=== PATIENT | male | born 1940 | race Caucasian/White ===

== ENCOUNTER 2016-07-21 12:39 | Day surgery (SDC) | payer MEDICARE, OTHER ==
[~2016-07-21] VITALS: Ht 170.2 cm; Wt 83.8 kg
[2016-07-21] MEDS ORDERED: GLUCOPHAGE500 MG/TAB PO (13:31)
[2016-07-21] MEDS ORDERED: HCTZ12.5TAB PO (13:31)
[2016-07-21] MEDS ORDERED: PRINIVIL40 MG PO (13:31)
[2016-07-21] MEDS ORDERED: TENORMIN100 MG PO (13:31)
[2016-07-21] MEDS ORDERED: NORVASC 10MG10 MG PO (13:31)
[2016-07-21] MEDS ORDERED: PROSCAR 5MG5 MG PO (13:35)
[2016-07-21 13:45] VITALS: BP 158/83; PULSE 83; TEMP 98.4
[2016-07-21 14:45] VITALS: BP 136/74; PULSE 89; TEMP 98.2
[2016-07-21 15:00] VITALS: BP 125/70; PULSE 85
[2016-07-21 15:23] VITALS: BP 130/75; PULSE 85
== END 2016-07-21 15:45 | disposition home or self-care (01) ==
LOC: SDCO 12:39
DX: R19.5 Other fecal abnormalities (principal); D50.0 Iron deficiency anemia secondary to blood loss (chronic); K57.30 Diverticulosis of large intestine without perforation or abscess without bleeding; R11.2 Nausea with vomiting, unspecified; E11.9 Type 2 diabetes mellitus without complications; E78.00 Pure hypercholesterolemia, unspecified; I10 Essential (primary) hypertension
CPT/HCPCS: J2250; J3010; J7030

== ENCOUNTER 2018-12-13 08:48 | Outpatient (CLI) | payer MEDICARE, OTHER ==
[~2018-12-13] VITALS: Ht 170.2 cm; Wt 79.6 kg
[~2018-12-13 08:48] MED LIST: GLUCOPHAGE500 MG/TAB PO; HCTZ12.5TAB PO; NORVASC 10MG10 MG PO; PRINIVIL40 MG PO; PROSCAR 5MG5 MG PO; TENORMIN100 MG PO
[2018-12-13 09:23] VITALS: BP 169/85; PULSE 79; TEMP 98.6
[2018-12-13 09:40] LABS: HEMATOCRIT 42.5 % (42.0-52.0); HEMOGLOBIN 14.5 g/dl (13.5-18.0); MEAN CELL VOLUME 95 fl (80.0-100.0); MEAN CORPUSCULAR HEMOGLOBIN 32 pg (27.0-31.0); MEAN CORPUSCULAR HGB CONC 34 g/dl (33.0-37.0); MEAN PLATELET VOLUME 8.8 fl (7.4-10.4); PLATELET COUNT 173 K/mm3 (130-400); RED BLOOD COUNT 4.48 M/mm3 (4.20-5.60); REDCELL DISTRIBUTION WIDTH-CV 12.9 % (11.5-14.5)
[2018-12-13 09:49] LABS: INR 1.3 (0.8-3.0); PROTHROMBIN TIME 15.1 SECONDS (9.7-12.8)
[2018-12-13 09:50] LABS: CALCIUM 10.7 mg/dL (8.4-10.2); CREATININE, serum 0.92 (0.66-1.25); POTASSIUM 3.6 mmol/L (3.4-5.0)
[2018-12-13 10:55] VITALS: BP 139/73; PULSE 84
[2018-12-13 11:10] VITALS: BP 146/79; PULSE 82
[2018-12-13 11:25] VITALS: BP 145/78; PULSE 81
--- NOTE | 2018-12-13 11:50 | NUR ---
Discharge instructions given to pt.pt verbalizes understanding.INT removed,catheter tip intact.pt escorted out via wheelchair by this nurse.
== END 2018-12-13 12:07 | disposition home or self-care (01) ==
LOC: COL.RAD 08:48
PROVIDERS: Internal Medicine Cardiovascular Disease
DX: I50.20 Unspecified systolic (congestive) heart failure (principal); I34.0 Nonrheumatic mitral (valve) insufficiency
CPT/HCPCS: J2704